=== PATIENT | female | born 1995 | race African-American/Black ===

== ENCOUNTER 2020-06-17 01:39 | Emergency (ER) | payer MEDICAID, OTHER ==
[~2020-06-17] VITALS: Ht 160 cm; Wt 108.0 kg
[2020-06-17 03:39] LABS: HEMATOCRIT 35.1 % (36.0-48.0); HEMOGLOBIN 11.5 g/dL (12.0-16.0); MEAN CORPUSCULAR HEMOGLOBIN 28.6 pg (28.0-32.0); MEAN CORPUSCULAR VOLUME 87.4 fL (81.0-99.0); PLATELET 227 x1000/uL (130-400); RED BLOOD CELL COUNT 4.01 mill/uL (4.2-5.4); RED CELL DISTRIBUTION WIDTH 14.9 % (11.6-14.6)
[2020-06-17 03:45] LABS: CHLORIDE 110 mEq/L (98-107)
[2020-06-17 04:40] VITALS: BP 129/90
== END 2020-06-17 04:54 | disposition home or self-care (01) ==
LOC: ER 01:39
DX: D64.9 Anemia, unspecified (principal); N93.9 Abnormal uterine and vaginal bleeding, unspecified; R03.0 Elevated blood-pressure reading, without diagnosis of hypertension
CPT/HCPCS: 36415; 80053; 81025; 85027; 93005; 99284